=== PATIENT | male | born 1950 | race African-American/Black ===

== ENCOUNTER 2016-05-21 19:23 | Inpatient (IN) | payer MEDICARE, MEDICAID ==
[~2016-05-21] VITALS: Ht 182.9 cm; Wt 61.8 kg
[2016-05-21] MEDS ORDERED: SODIUM CHLORIDE 0.9% 1,000 ML IV ONE (19:30)
[2016-05-21] MEDS ORDERED: ONDANSETRON HCL 4 MG/2 ML VIAL IVP ONE ×2 (19:30→20:45)
[2016-05-21 20:02] LABS: EOSINOPHILS % (AUTO) 1.2 % (1.0-6.0); HEMATOCRIT 49.3 % (41-53); LYMPHOCYTES # (AUTO) 0.5 K/uL (1.0-4.8); LYMPHOCYTES % (AUTO) 2.2 % (22.0-44.0); MEAN CORPUSCULAR HGB CONC 32.4 G/dL (31.0-37.0); MEAN CORPUSCULAR VOLUME 89 fL (80-100); MONOCYTES # (AUTO) 0.9 K/uL (0.1-1.0); MONOCYTES % (AUTO) 4.4 % (2.0-9.0); NEUTROPHILS # (AUTO) 19.1 K/uL (1.8-7.7); PLATELET COUNT (AUTO) 305 K/uL (150-450); RED BLOOD CELL COUNT(AUTO) 5.52 MIL/uL (4.50-5.90); RED CELL DISTRIBUTION WIDTH 13.3 % (11.5-14.5); WHITE BLOOD COUNT (AUTO) 20.7 K/uL (4.5-11.0)
[2016-05-21] MEDS ORDERED: HYDR-3971 PO (20:07)
[2016-05-21] MEDS ORDERED: UNK BP MED PO (20:07)
[2016-05-21] MEDS ORDERED: IBUP-1547 PO (20:07)
[2016-05-21 20:14] LABS: NEUTROPHILS % (AUTO) 92.2 % (40.0-70.0)
[2016-05-21 20:18] LABS: INR 1.1 (0.9-1.1); PROTHROMBIN TIME 11.5 SEC (9.4-11.6)
[2016-05-21 20:36] LABS: ALANINE AMINOTRANSFERASE 52 U/L (12-78); ALBUMIN 3.2 g/dL (3.4-5.0); ANION GAP 9 mmol/L (8-16); ASPARTATE AMINOTRANSFERASE 73 U/L (15-37); BILIRUBIN,TOTAL 0.6 mg/dL (0.1-1.0); CALCIUM, TOTAL 9.2 mg/dL (8.8-10.5); CARBON DIOXIDE 32 mmol/L (22-29); CHLORIDE 104 mmol/L (98-107); CREATINE KINASE MB 4.6 ng/mL (0-5); CREATINE KINASE, TOTAL 113 U/L (39-308); CREATININE 0.94 mg/dL (0.60-1.30); GLOMERULAR FILTR. RATE CALC > 60 mL/min (>60); SODIUM SERUM 145 mmol/L (136-145); TOTAL PROTEIN, SERUM 8.5 g/dL (6.4-8.2); UREA NITROGEN, BLOOD 27 mg/dL (7-18)
[2016-05-21 20:39] LABS: POTASSIUM 2.9 mmol/L (3.5-5.1)
[2016-05-21] MEDS ORDERED: POTASSIUM CHL 40 MEQ/D5-0.45NS 1,000 ML IV ONE (20:45)
[2016-05-21] MEDS ORDERED: POTASSIUM CHL 10 MEQ/WATER 50 ML IV ONE (20:45)
[2016-05-21] MEDS ORDERED: HYDROmorphone 2 MG/ML SYRINGE IVP ONE (20:45)
[2016-05-21 20:57] LABS: B-TYPE NATRIURETIC PEPTIDE 56 pg/mL (0-100)
[2016-05-21 21:06] LABS: RBC MORPHOLOGY COMMENT NORMAL RBC MORPH
[2016-05-21 21:14] LABS: PROCALCITONIN (PCT) < 0.05 ng/mL (<0.50)
[2016-05-21] MEDS ORDERED: 0.9% SODIUM CHLORIDE 10 ML SYRINGE IVP PRN (21:15)
[2016-05-21] MEDS ORDERED: HYDROmorphone 2 MG/ML SYRINGE IVP PRN (21:15)
[2016-05-21] MEDS ORDERED: ONDANSETRON HCL 4 MG/2 ML VIAL IVP PRN (21:15)
[2016-05-21] MEDS ORDERED: ACETAMINOPHEN 325 MG TABLET PO PRN (21:15)
[2016-05-21] MEDS ORDERED: POTASSIUM CHLORIDE 10% 40 MEQ/30 ML LIQUID UDCUP PO ONE (21:15)
[2016-05-21] MEDS ORDERED: LABETALOL HCL 5 MG/ML 20 ML VIAL IVP ONE (22:00)
[2016-05-21 22:47] LABS: APPEARANCE,URINE CLEAR (CLEAR); GLUCOSE, URINE (UA) NEGATIVE (NEGATIVE); KETONES,URINE NEGATIVE (NEGATIVE); LEUKOCYTE ESTERASE ,URINE NEGATIVE (NEGATIVE); OCCULT BLOOD,URINE NEGATIVE (NEGATIVE); PROTEIN,URINE SEE CONFIRM (NEGATIVE)
[2016-05-21 22:59] LABS: SULFOSALICYLIC ACID,URINE 2+ (Negative)
[2016-05-21 23:01] LABS: HYALINE CASTS, URINE 0-2 /LPF (None Seen); RBC,URINE 0-2 /HPF (0-2)
[2016-05-21 23:20] VITALS: BP 155/95
[2016-05-22 04:57] VITALS: BP 149/94
[2016-05-22 07:10] VITALS: BP 118/77
[2016-05-22 10:52] LABS: ALANINE AMINOTRANSFERASE 37 U/L (12-78); ALBUMIN 2.3 g/dL (3.4-5.0); ANION GAP 4 mmol/L (8-16); ASPARTATE AMINOTRANSFERASE 48 U/L (15-37); BILIRUBIN,TOTAL 0.3 mg/dL (0.1-1.0); CALCIUM, TOTAL 8.2 mg/dL (8.8-10.5); CARBON DIOXIDE 33 mmol/L (22-29); CHLORIDE 107 mmol/L (98-107); CREATININE 0.77 mg/dL (0.60-1.30); GLOMERULAR FILTR. RATE CALC > 60 mL/min (>60); SODIUM SERUM 144 mmol/L (136-145); TOTAL PROTEIN, SERUM 6.2 g/dL (6.4-8.2); UREA NITROGEN, BLOOD 22 mg/dL (7-18)
[2016-05-22] MEDS: HYDROmorphone 2 MG/ML SYRINGE IVP PRN ×3 (11:16→20:51)
[2016-05-22 11:30] VITALS: BP 158/91
[2016-05-22] MEDS ORDERED: BISACODYL 10 MG RECTAL RECTAL SUPPOSITORY PR PRN (11:45)
[2016-05-22] MEDS ORDERED: ZOLPIDEM TARTRATE 5 MG TABLET PO PRN (11:45)
[2016-05-22] MEDS ORDERED: ACETAMINOPHEN 650 MG/20.3 ML SOLUTION UDCUP PO PRN (11:45)
[2016-05-22] MEDS ORDERED: ACETAMINOPHEN 325 MG TABLET PO PRN (11:45)
[2016-05-22 15:54] VITALS: BP 146/86
[2016-05-22 19:31] VITALS: BP 155/90
[2016-05-22] MEDS: DOCUSATE SODIUM 100 MG CAPSULE PO SCH (19:57)
[2016-05-22] MEDS: BUDESONIDE 0.5 MG/2 ML NEB SOLUTION NEB SCH (21:00)
[2016-05-22 23:45] VITALS: BP 145/85
[2016-05-23 04:36] VITALS: BP 154/90
[2016-05-23] MEDS: HYDROmorphone 2 MG/ML SYRINGE IVP PRN ×4 (05:36→20:59)
[2016-05-23 06:54] LABS: ALANINE AMINOTRANSFERASE 38 U/L (12-78); ALBUMIN 2.4 g/dL (3.4-5.0); ANION GAP 5 mmol/L (8-16); ASPARTATE AMINOTRANSFERASE 45 U/L (15-37); BILIRUBIN,TOTAL 0.4 mg/dL (0.1-1.0); CALCIUM, TOTAL 8.7 mg/dL (8.8-10.5); CARBON DIOXIDE 32 mmol/L (22-29); CHLORIDE 106 mmol/L (98-107); GLOMERULAR FILTR. RATE CALC > 60 mL/min (>60); LACTATE DEHYDROGENASE 247 U/L (85-227); POTASSIUM 4.3 mmol/L (3.5-5.1); SODIUM SERUM 143 mmol/L (136-145); TOTAL PROTEIN, SERUM 6.8 g/dL (6.4-8.2); UREA NITROGEN, BLOOD 24 mg/dL (7-18)
[2016-05-23] MEDS: BUDESONIDE 0.5 MG/2 ML NEB SOLUTION NEB SCH ×2 (07:35→20:20)
[2016-05-23 07:38] VITALS: BP 150/95
[2016-05-23] MEDS: PANTOPRAZOLE SODIUM 40 MG DR TABLET PO SCH (11:22)
[2016-05-23] MEDS: LISINOPRIL 20 MG TABLET PO SCH (11:22)
[2016-05-23] MEDS: DOCUSATE SODIUM 100 MG CAPSULE PO SCH ×2 (11:22→20:05)
[2016-05-23] MEDS: ONDANSETRON HCL 4 MG/2 ML VIAL IVP PRN ×2 (11:29→17:01)
[2016-05-23 11:37] VITALS: BP 160/104
[2016-05-23 13:28] LABS: APPEARANCE,UNSPUN,BODY FLUID BLOODY (CLEAR)
[2016-05-23 13:29] LABS: COLOR,BODY FLUID RED (LT YELLOW)
[2016-05-23 15:49] VITALS: BP 145/81
[2016-05-23 19:53] VITALS: BP 131/83
[2016-05-23] MEDS: GABAPENTIN 100 MG CAPSULE PO SCH (20:05)
[2016-05-24] VITALS (7 sets, daily range): BP systolic 113–156; BP diastolic 78–104
[2016-05-24] MEDS: HYDROmorphone 2 MG/ML SYRINGE IVP PRN ×5 (01:05→18:15)
[2016-05-24] MEDS: BUDESONIDE 0.5 MG/2 ML NEB SOLUTION NEB SCH ×2 (07:29→21:10)
[2016-05-24] MEDS: PANTOPRAZOLE SODIUM 40 MG DR TABLET PO SCH (08:46)
[2016-05-24] MEDS: LISINOPRIL 20 MG TABLET PO SCH (08:46)
[2016-05-24] MEDS: DOCUSATE SODIUM 100 MG CAPSULE PO SCH ×2 (08:46→20:15)
[2016-05-24] MEDS: GABAPENTIN 100 MG CAPSULE PO SCH ×3 (08:46→20:15)
[2016-05-24 16:42] LABS: TOTAL PROTEIN,BODY FLUID,REF 3.9 g/dL
[2016-05-25] MEDS: HYDROmorphone 2 MG/ML SYRINGE IVP PRN ×6 (00:10→22:23)
[2016-05-25 04:30] VITALS: BP 140/93
[2016-05-25 08:19] VITALS: BP 144/99
[2016-05-25] MEDS: DOCUSATE SODIUM 100 MG CAPSULE PO SCH ×2 (09:01→20:17)
[2016-05-25] MEDS: GABAPENTIN 100 MG CAPSULE PO SCH ×3 (09:01→20:17)
[2016-05-25] MEDS: PANTOPRAZOLE SODIUM 40 MG DR TABLET PO SCH (09:01)
[2016-05-25] MEDS: LISINOPRIL 20 MG TABLET PO SCH (09:01)
[2016-05-25] MEDS: BUDESONIDE 0.5 MG/2 ML NEB SOLUTION NEB SCH ×2 (10:32→20:45)
[2016-05-25 11:42] VITALS: BP 139/91
[2016-05-25 15:15] VITALS: BP 137/82
[2016-05-25 21:00] VITALS: BP 130/55
[2016-05-26] VITALS (7 sets, daily range): BP systolic 103–145; BP diastolic 72–97
[2016-05-26 06:10] LABS: EOSINOPHILS % (AUTO) 1.2 % (1.0-6.0); HEMATOCRIT 40.3 % (41-53); HEMOGLOBIN 12.9 g/dL (13.5-17.5); LYMPHOCYTES # (AUTO) 0.3 K/uL (1.0-4.8); LYMPHOCYTES % (AUTO) 1.5 % (22.0-44.0); MEAN CORPUSCULAR HEMOGLOBIN 28.6 pg (26.0-34.0); MEAN CORPUSCULAR HGB CONC 32.1 G/dL (31.0-37.0); MEAN CORPUSCULAR VOLUME 89 fL (80-100); MONOCYTES # (AUTO) 1.9 K/uL (0.1-1.0); MONOCYTES % (AUTO) 9.3 % (2.0-9.0); NEUTROPHILS # (AUTO) 17.8 K/uL (1.8-7.7); PLATELET COUNT (AUTO) 209 K/uL (150-450); RED BLOOD CELL COUNT(AUTO) 4.52 MIL/uL (4.50-5.90); RED CELL DISTRIBUTION WIDTH 13.9 % (11.5-14.5); WHITE BLOOD COUNT (AUTO) 20.2 K/uL (4.5-11.0)
[2016-05-26] MEDS: HYDROmorphone 2 MG/ML SYRINGE IVP PRN ×5 (06:27→23:38)
[2016-05-26 06:28] LABS: ANION GAP 4 mmol/L (8-16); CALCIUM, TOTAL 8.6 mg/dL (8.8-10.5); CARBON DIOXIDE 32 mmol/L (22-29); CHLORIDE 105 mmol/L (98-107); CREATININE 0.84 mg/dL (0.60-1.30); GLOMERULAR FILTR. RATE CALC > 60 mL/min (>60); PHOSPHORUS 3.4 mg/dL (2.5-4.9); POTASSIUM 4.5 mmol/L (3.5-5.1); SODIUM SERUM 141 mmol/L (136-145); UREA NITROGEN, BLOOD 27 mg/dL (7-18)
[2016-05-26 07:47] LABS: RBC MORPHOLOGY COMMENT NORMAL RBC MORPH
[2016-05-26] MEDS: BUDESONIDE 0.5 MG/2 ML NEB SOLUTION NEB SCH ×2 (08:08→20:53)
[2016-05-26] MEDS: LISINOPRIL 20 MG TABLET PO SCH (08:20)
[2016-05-26] MEDS: PANTOPRAZOLE SODIUM 40 MG DR TABLET PO SCH (08:20)
[2016-05-26] MEDS: DOCUSATE SODIUM 100 MG CAPSULE PO SCH ×2 (08:20→20:10)
[2016-05-26] MEDS: GABAPENTIN 100 MG CAPSULE PO SCH ×3 (08:24→20:09)
[2016-05-26] MEDS ORDERED: MAGNESIUM SULFATE 2 GM in DEXTROSE 5%-WATER 50 ML IV PRN (23:15)
[2016-05-26] MEDS ORDERED: MAGNESIUM SULFATE 4 GM/WATER 100 ML IV PRN (23:15)
[2016-05-26] MEDS ORDERED: POTASSIUM CHLORIDE 20 MEQ ER TABLET PO PRN (23:15)
[2016-05-26] MEDS ORDERED: POTASSIUM CHL 10 MEQ/WATER 50 ML IV PRN (23:15)
[2016-05-26] MEDS: MAGNESIUM OXIDE 400 MG TABLET PO PRN (23:38)
[2016-05-27] MEDS: MAGNESIUM OXIDE 400 MG TABLET PO PRN (04:04)
[2016-05-27] MEDS: HYDROmorphone 2 MG/ML SYRINGE IVP PRN ×3 (04:05→12:18)
[2016-05-27 04:30] VITALS: BP 114/67
[2016-05-27 07:15] VITALS: BP 139/76
[2016-05-27 07:34] LABS: ALBUMIN 2.1 g/dL (3.4-5.0); MAGNESIUM 1.9 mg/dL (1.80-2.40)
[2016-05-27] MEDS: GABAPENTIN 100 MG CAPSULE PO SCH (07:54)
[2016-05-27] MEDS: PANTOPRAZOLE SODIUM 40 MG DR TABLET PO SCH (07:54)
[2016-05-27] MEDS: LISINOPRIL 20 MG TABLET PO SCH (07:54)
[2016-05-27] MEDS: DOCUSATE SODIUM 100 MG CAPSULE PO SCH (07:55)
[2016-05-27] MEDS: BUDESONIDE 0.5 MG/2 ML NEB SOLUTION NEB SCH (10:02)
[2016-05-27 11:15] VITALS: BP 128/51
[2016-05-27] MEDS ORDERED: HYDROCODONE/ACETAMINOPHEN 5-325 MG TABLET PO PRN (13:30)
[2016-05-27] MEDS ORDERED: ALBUTEROL SULFATE 2.5 MG/0.5 ML NEB SOLUTION NEB PRN (14:30)
[2016-05-27 15:30] VITALS: BP 93/67
== END 2016-05-27 18:30 | disposition home or self-care (01) | DRG 640 ==
LOC: EMS 19:26 → 6N 21:07
PROVIDERS: ADMIT Internal Medicine; ATTEND Internal Medicine
PROC: 0W9B3ZZ Drainage of Left Pleural Cavity, Percutaneous Approach (ICD-10-PCS; principal; 2016-05-23)
DX: E86.0 Dehydration (principal); E43 Unspecified severe protein-calorie malnutrition; J90 Pleural effusion, not elsewhere classified; C15.5 Malignant neoplasm of lower third of esophagus; C79.51 Secondary malignant neoplasm of bone; R53.1 Weakness; J44.9 Chronic obstructive pulmonary disease, unspecified; R13.10 Dysphagia, unspecified; Z85.028 Personal history of other malignant neoplasm of stomach; D72.829 Elevated white blood cell count, unspecified; F17.200 Nicotine dependence, unspecified, uncomplicated; E87.6 Hypokalemia; G83.9 Paralytic syndrome, unspecified; G89.3 Neoplasm related pain (acute) (chronic); I11.9 Hypertensive heart disease without heart failure; K59.00 Constipation, unspecified; R29.6 Repeated falls; Z83.3 Family history of diabetes mellitus; Z90.49 Acquired absence of other specified parts of digestive tract; Z91.81 History of falling; Z92.21 Personal history of antineoplastic chemotherapy; Z92.3 Personal history of irradiation; Z68.20 Body mass index [BMI] 20.0-20.9, adult; Z98.890 Other specified postprocedural states; Z81.1 Family history of alcohol abuse and dependence; Z84.89 Family history of other specified conditions
CPT/HCPCS: 32555; 70450; 76942; 82465; 82945; 83605; 83615; 83735; 83986; 84100; 84145; 84157; 87015; 87040; 87070; 87086; 87101; 87205; 88108; 88313; 88341; 88342; 89051; 93005; 94640; 96361; 96365; 96375; 99285; J1170; J2405; J3480; J3490; J7030